=== PATIENT | male | born 1935 | race African-American/Black ===

== ENCOUNTER 2022-07-02 06:04 | Inpatient (IN) | payer MEDICARE, OTHER ==
[~2022-07-02] VITALS: Ht 167.6 cm; Wt 93.0 kg
[~2022-07-02 06:04] MED LIST: AMLO10TA4 PO; ASPI-1073 PO; CRES10 PO; METF-416 PO; OLME20TA13 PO; PITA4TAB2 PO
[2022-07-02] MEDS ORDERED: CARV3.1242 PO (08:05)
[2022-07-02] MEDS ORDERED: MIDAZOLAM HCL 2 MG/2 ML VIAL ONE (08:15)
[2022-07-02] MEDS ORDERED: PROPOFOL 200MG/20ML VIAL IV ONE (08:15)
[2022-07-02] MEDS ORDERED: ONDANSETRON HCL 4MG/2ML INJ ONE (08:15)
[2022-07-02] MEDS ORDERED: FENTANYL CITRATE/PF 50MCG/ML 2ML VIAL ONE (08:15)
[2022-07-02] MEDS ORDERED: DEXAMETHASONE 4MG/ML 1ML VIAL ONE (08:15)
[2022-07-02 08:24] LABS: CHLORIDE 109 mEq/L (98-107)
[2022-07-02 08:30] LABS: HEMATOCRIT. 45.6 % (42.0-52.0); HEMOGLOBIN. 14.8 g/dL (14.0-18.0); MEAN CORPUSCULAR HEMOGLOBIN 31.1 pg (28.0-32.0); MEAN PLATELET VOLUME 9.8 fl (7.4-10.4); PLATELET 179 x1000/uL (130-400); RED BLOOD CELL COUNT 4.75 mill/uL (4.7-6.1); RED CELL DISTRIBUTION WIDTH 13.1 % (11.6-14.6)
[2022-07-02 09:29] LABS: CLARITY URINE CLEAR (CLEAR); COLOR URINE YELLOW (YELLOW); KETONES URINE NEGATIVE (NEGATIVE); LEUKOCYTE ESTERASE URINE NEGATIVE (NEGATIVE); NITRITE URINE NEGATIVE (NEGATIVE); OCCULT BLOOD URINE NEGATIVE (NEGATIVE); PH URINE 5.5 (4.5-8.0); PROTEIN URINE TRACE (NEGATIVE); UROBILINOGEN URINE 0.2 E.U./dL (0.2-1.0)
[2022-07-02 09:43] LABS: ATYPICAL LYMPHOCYTES 2; PLATELET ESTIMATE NORMAL
[2022-07-02] MEDS ORDERED: IODIXANOL 320MG/ML 100 ML BOTTLE IV ONE (10:15)
[2022-07-02] MEDS ORDERED: LIDOCAINE HCL 1% 50ML VIAL (10MG/ML) ONE (10:15)
[2022-07-02] MEDS ORDERED: LIDOCAINE HCL 1% 10 MG/ML 10ML VIAL ONE (10:23)
[2022-07-02] MEDS ORDERED: PHENYLEPHRINE HCL 10 MG/ML 1ML (IV VIAL) IV ONE (10:39)
[2022-07-02] MEDS ORDERED: MEPERIDINE HCL/PF 25MG/ML CPJ IV PRN (11:30)
[2022-07-02] MEDS ORDERED: HYDROMORPHONE HCL/PF 2MG/ML CPJ IV PRN (11:30)
[2022-07-02] MEDS ORDERED: ONDANSETRON HCL 4MG/2ML INJ IV PRN (11:30)
[2022-07-02] MEDS ORDERED: LABETALOL 5MG/ML SYR 20 MG/4 ML SYRINGE IV PRN (11:30)
[2022-07-02] MEDS ORDERED: GENTAMICIN SULF 40MG/ML 2ML VIAL ONE (12:40)
[2022-07-02 13:00] LABS: PROTHROMBIN TIME 10.8 sec (9.6-11.0)
[2022-07-02] MEDS ORDERED: CEFAZOLIN SODIUM 1000MG/VIAL ONE (13:21)
[2022-07-02] MEDS ORDERED: HYDROMORPHONE HCL/PF 2MG/ML CPJ ONE (13:21)
[2022-07-02] MEDS ORDERED: HYDROCODONE/ACETAMINOPHEN 5/325MG TABLET PO PRN (13:30)
[2022-07-02] MEDS ORDERED: NALOXONE HCL 0.4MG/ML VIAL IV PRN (13:45)
[2022-07-02 15:47] VITALS: BP 119/62
[2022-07-02 16:06] VITALS: BP 119/62
[2022-07-02 18:00] VITALS: BP 129/80
[2022-07-02] MEDS: CARVEDILOL 3.125 MG TABLET PO SCH (18:36)
[2022-07-02 20:00] VITALS: BP 114/64
[2022-07-03] VITALS: BP 105/65
[2022-07-03 04:00] VITALS: BP 120/72
[2022-07-03 06:32] LABS: BASOPHILS % 0.5 % (0.0-2.0); EOSINOPHILS % 0.1 % (0.0-5.0); HEMATOCRIT. 41.7 % (42.0-52.0); HEMOGLOBIN. 13.7 g/dL (14.0-18.0); LYMPHOCYTES % 41.3 % (20.0-50.0); MEAN CORPUSCULAR HEMOGLOBIN 31.5 pg (28.0-32.0); MEAN CORPUSCULAR VOLUME 95.8 fL (80.0-94.0); MEAN PLATELET VOLUME 9.9 fl (7.4-10.4); MONOCYTES % 5.8 % (2.0-8.0); NEUTROPHILS % 52.3 % (40.0-76.0); PLATELET 169 x1000/uL (130-400); RED BLOOD CELL COUNT 4.36 mill/uL (4.7-6.1); RED CELL DISTRIBUTION WIDTH 12.8 % (11.6-14.6)
[2022-07-03 06:35] LABS: CHLORIDE 110 mEq/L (98-107)
[2022-07-03 08:07] VITALS: BP 127/71
[2022-07-03] MEDS: CARVEDILOL 3.125 MG TABLET PO SCH (08:08)
[2022-07-03] MEDS ORDERED: ASPIRIN 81MG EC TABLET PO SCH (09:00)
[2022-07-03] MEDS ORDERED: AMLODIPINE 10MG TABLET PO SCH (09:00)
[2022-07-03 10:16] VITALS: BP 127/71
[2022-07-03 11:00] VITALS: BP 111/66
[2022-07-03 11:18] VITALS: BP 109/58
[2022-07-03] MEDS ORDERED: CARV3.1242 PO (15:57)
[2022-07-03] MEDS ORDERED: CEPH250C2 MT (16:05)
== END 2022-07-03 16:30 | disposition home or self-care (01) | DRG 224 ==
LOC: CCL 06:04 → 3WST 15:44
PROVIDERS: ADMIT Internal Medicine Clinical Cardiac Electrophysiology; ATTEND Internal Medicine Clinical Cardiac Electrophysiology
PROC: 02HK3KZ Insertion of Defibrillator Lead into Right Ventricle, Percutaneous Approach (ICD-10-PCS; principal; 2022-07-02)
PROC: 0JH609Z Insertion of Cardiac Resynchronization Defibrillator Pulse Generator into Chest Subcutaneous Tissue and Fascia, Open Approach (ICD-10-PCS; 2022-07-02)
PROC: 4A023N6 Measurement of Cardiac Sampling and Pressure, Right Heart, Percutaneous Approach (ICD-10-PCS; 2022-07-02)
PROC: 02H63KZ Insertion of Defibrillator Lead into Right Atrium, Percutaneous Approach (ICD-10-PCS; 2022-07-02)
PROC: 02HK0KZ Insertion of Defibrillator Lead into Right Ventricle, Open Approach (ICD-10-PCS; 2022-07-02)
PROC: 02HL0KZ Insertion of Defibrillator Lead into Left Ventricle, Open Approach (ICD-10-PCS; 2022-07-02)
PROC: B5171ZZ Fluoroscopy of Left Subclavian Vein using Low Osmolar Contrast (ICD-10-PCS; 2022-07-02)
DX: I47.29 Other ventricular tachycardia (principal); I50.23 Acute on chronic systolic (congestive) heart failure; C91.10 Chronic lymphocytic leukemia of B-cell type not having achieved remission; I42.0 Dilated cardiomyopathy; I11.0 Hypertensive heart disease with heart failure; I25.10 Atherosclerotic heart disease of native coronary artery without angina pectoris; I44.7 Left bundle-branch block, unspecified; E11.9 Type 2 diabetes mellitus without complications; M19.90 Unspecified osteoarthritis, unspecified site; I25.5 Ischemic cardiomyopathy; Z68.33 Body mass index [BMI] 33.0-33.9, adult; Z83.3 Family history of diabetes mellitus; Z82.49 Family history of ischemic heart disease and other diseases of the circulatory system
CPT/HCPCS: 33225; 33249; 36415; 71045; 75820; 80048; 81003; 85025; 93005; 93451; 93641; A4565; C1769; C1882; C1887; C1893; C1898; C1899; C1900; J0690; J1100; J1170; J1580; J1644; J2250; J2370; J2405; J2704; J3010; J3490; Q9967

== ENCOUNTER → 2022-07-25 | Outpatient (CLI) | payer MEDICARE, OTHER ==
[~2022-07-25] MED LIST changes: +CARV3.1242 PO
== END | disposition home or self-care (01) ==
LOC: RAD 10:16
PROVIDERS: ATTEND Specialist
DX: I51.7 Cardiomegaly (principal); R06.02 Shortness of breath; Z95.810 Presence of automatic (implantable) cardiac defibrillator
CPT/HCPCS: 71046

== ENCOUNTER → 2023-06-05 | Day surgery (SDC) | payer MEDICARE, OTHER ==
[~2023-06-05] VITALS: Ht 166.4 cm; Wt 86.6 kg
[~2023-06-05] MED LIST changes: +ACETAMINOPHEN 500MG TABLET ONE; +BUPIVACAINE HCL 0.5% 125 ML in ON-Q PM012 DRUG DELIV DEVICE 1 EA IR NR; +BUPIVACAINE HCL/PF 0.5% (5MG/ML) 10ML ONE; +CALCIUM CHLORIDE 1GM/10ML SYR IV ONE; +CELE200C PO; +DEXAMETHASONE 4MG/ML 1ML VIAL ONE; +EMPA10TA PO; +ETOMIDATE 2MG/ML 10ML VIAL IV ONE; +FENTANYL CITRATE/PF 50MCG/ML 2ML VIAL ONE; +GLYCOPYRROLATE 0.2 MG/ML 2ML VIAL ONE; +HYDROCODONE/ACETAMINOPHEN 5/325MG TABLET PO NR; +HYDROMORPHONE HCL/PF 2MG/ML CPJ IV PRN; +HYDROMORPHONE HCL/PF 2MG/ML CPJ ONE; +LIDOCAINE HCL 1% 10 MG/ML 10ML VIAL ONE; +NEOSTIGMINE METHYLSULFATE 1MG/ML 10 ML VIAL ONE; +ONDANSETRON HCL 4MG/2ML INJ IV PRN; +ONDANSETRON HCL 4MG/2ML INJ ONE; +PHENYLEPHRINE HCL 10 MG/ML 1ML (IV VIAL) IV ONE; +PROPOFOL 200MG/20ML VIAL IV ONE; +SACU1TAB7 PO; +SODIUM CHLORIDE 0.9% 1,000 ML IV SCH; +SUCCINYLCHOLINE CHLORIDE 200MG/10ML IV ONE; +TAFA61CA PO; +VECURONIUM BROMIDE 10 MG/VIAL IV ONE; +VERQUVO PO
[2023-06-05 10:30] VITALS: BP 108/89; PULSE 81; RESP 13
== END | disposition home or self-care (01) ==
LOC: OR 06:31
PROVIDERS: ATTEND Surgery
DX: K40.90 Unilateral inguinal hernia, without obstruction or gangrene, not specified as recurrent (principal); I11.0 Hypertensive heart disease with heart failure; I50.9 Heart failure, unspecified; I48.91 Unspecified atrial fibrillation; I25.10 Atherosclerotic heart disease of native coronary artery without angina pectoris; E78.00 Pure hypercholesterolemia, unspecified; G47.33 Obstructive sleep apnea (adult) (pediatric); E11.51 Type 2 diabetes mellitus with diabetic peripheral angiopathy without gangrene; E78.5 Hyperlipidemia, unspecified; Z79.82 Long term (current) use of aspirin; Z79.899 Other long term (current) drug therapy; Z98.890 Other specified postprocedural states; Z82.49 Family history of ischemic heart disease and other diseases of the circulatory system
CPT/HCPCS: 82962; 49505; J3010; J3490 ×7; J1100; J2710; J2405; J2370; J2704; J1170; A4217; Z7610 ×19; C1781; J0330